=== PATIENT | female | born 1985 | race Caucasian/White ===

== ENCOUNTER 2017-09-07 13:40 | Emergency (ER) | payer OTHER ==
[2017-09-07 13:52] VITALS: RESP 16
--- NOTE | 2017-09-07 14:04 | CPEKG ---
Heart Rate: 87 RR Interval: 690 P-R Interval: 152 QRSD Interval: 74 QT Interval: 372 QTC Interval: 448 P Ste[place]: 25 QRS Steuben: 42 T Wave Ste[place]: 31 EKG Severity - BORDERLINE ECG - EKG Impression: SINUS RHYTHM EKG Impression: BORDERLINE T ABNORMALITIES, ANTERIOR LEADS Electronically Signed By: Asher Gallegos 08-Sep-2017 00:13:34
[2017-09-07 14:55] VITALS: O2SAT 96
--- NOTE | 2017-09-07 15:21 | EDPHY ---
H & P Stated Complaint: Palpitations Time Seen by Provider: 09/07/17 15:21 HPI/ROS: CHIEF COMPLAINT: Palpitations HISTORY OF PRESENT ILLNESS: The patient presents to the ED after she experienced an episode of palpitations earlier today. The patient describes a sensation of an irregular heartbeat. The patient reports her heart rate was approximately 80-130. The patient's symptoms have subsequently resolved. The patient denies prior history of arrhythmia. The patient denies any antecedent chest pain or shortness of breath. She denies asymmetric calf pain or swelling. The patient denies any history hypertension or hyperlipidemia. The patient does have a history of migraine headaches. REVIEW OF SYSTEMS: A comprehensive 10 point review of systems is otherwise negative aside from elements mentioned in the history of present illness. 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 PSH: right elbow replacement, 2 c-sections, myriam - Social History Smoking Status: Never smoked - Physical Exam Exam: General Appearance: Alert, no distress Eyes: Pupils equal and round no pallor or injection ENT, Mouth: Mucous membranes moist Respiratory: There are no retractions, lungs are clear to auscultation Cardiovascular: Regular rate and rhythm Gastrointestinal: Abdomen is soft and nontender, no masses, bowel sounds normal Neurological: A&O, normal motor function, normal sensory exam, normal cranial nerves Skin: Warm and dry, no rashes Musculoskeletal: Neck is supple nontender Extremities: symmetrical, full range of motion Constitutional: Initial Vital Signs Temperature (C) 37.5 C 09/07/17 13:49 Heart Rate 90 09/07/17 13:49 Respiratory Rate 16 09/07/17 13:49 Blood Pressure 139/90 H 09/07/17 13:49 O2 Sat (%) 97 09/07/17 13:49 O2 Delivery Mode Room Air Allergies/Adverse Reactions: sea food Allergy (Uncoded 09/07/17 13:47) Home Medications: Medication Instructions Recorded Bcp 09/07/17 Gabapentin 09/07/17 Lexapro 09/07/17 Pantoprazole Sodium 09/07/17 Rizatriptan 09/07/17 Medical Decision Making - Diagnostics EKG Interpretation: EKG: Complete interpretation has been separately recorded in the [email or web address] archive. Summary impression: Sinus rhythm, nonspecific ST T wave changes noted. ED Course/Re-evaluation: The patient presents the emergency department after an episode of resolved palpitations. The patient was placed on a cardiac tech in the emergency department without any arrhythmia noted. The patient's EKG demonstrates no acute changes. The patient has no complaints of chest pain or shortness of breath. There is nothing to suggest PE based upon her history and physical exam. The patient's electrolytes demonstrate no acute abnormalities. This point time I do feel the patient can follow up with Cardiology for consideration of a Holter monitor. She is advised to return to the ED for any recurrent palpitations, chest pain, difficulty breathing or other concerns. Differential Diagnosis: Differential diagnosis considered includes SVT, atrial fibrillation, sinus tachycardia, dehydration - Data Points Laboratory Results: Laboratory Results 09/07/17 14:53 09/07/17 14:53 09/07/17 09/07/17 14:53 14:53 WBC 8.78 10^3/uL 10^3/uL (3.80-9.50) RBC 4.71 10^6/uL 10^6/uL (4.18-5.33) Hgb 14.8 g/dL g/dL (12.6-16.3) Hct 43.4 % % (38.0-47.0) MCV 92.1 fL fL (81.5-99.8) MCH 31.4 pg pg (27.9-34.1) MCHC 34.1 g/dL g/dL (32.4-36.7) RDW 11.8 % % (11.5-15.2) Plt Count 279 10^3/uL 10^3/uL (150-400) MPV 9.6 fL fL (8.7-11.7) Neut % (Auto) 59.6 % % (39.3-74.2) Lymph % (Auto) 29.3 % % (15.0-45.0) [place] % (Auto) 5.9 % % (4.5-13.0) Eos % (Auto) 4.2 % % (0.6-7.6) Baso % (Auto) 0.8 % % (0.3-1.7) Nucleat RBC Rel Count 0.0 % % (0.0-0.2) Absolute Neuts (auto) 5.23 10^3/uL 10^3/uL (1.70-6.50) Absolute Lymphs (auto) 2.57 10^3/uL 10^3/uL (1.00-3.00) Absolute Monos (auto) 0.52 10^3/uL 10^3/uL (0.30-0.80) Absolute Eos (auto) 0.37 10^3/uL 10^3/uL (0.03-0.40) Absolute Basos (auto) 0.07 10^3/uL 10^3/uL (0.02-0.10) Absolute Nucleated RBC 0.00 10^3/uL 10^3/uL (0-0.01) Immature Gran % 0.2 % % (0.0-1.1) Immature Gran # 0.02 10^3/uL 10^3/uL (0.00-0.10) Sodium 142 mEq/L mEq/L (135-145) Potassium 4.1 mEq/L mEq/L (3.5-5.2) Chloride 103 mEq/L mEq/L (97-110) Carbon Dioxide 26 mEq/l mEq/l (22-31) Anion Gap 13 mEq/L mEq/L (8-16) BUN 11 mg/dL mg/dL (7-23) Creatinine 1.0 mg/dL mg/dL (0.6-1.0) Estimated GFR > 60 Glucose 88 mg/dL mg/dL (70-100) Calcium 10.0 mg/dL mg/dL (8.5-10.4) TSH 1.180 uIU/mL uIU/mL (0.465-4.680) Departure - Departure Disposition: Home, Routine, Self-Care Clinical Impression: Palpitations Condition: Good Instructions: Heart Palpitations (ED) Additional Instructions: 1. Please return to the emergency department for any recurrent palpitations, difficulty breathing or other concerns. 2. Please follow up with our belt machine operator for consideration of a Holter monitor. Referrals: Trung Bauer MD [Medical Doctor] - As per Instructions
[2017-09-07 15:32] LABS: PLATELET COUNT 279 10^3/uL (150-400)
[2017-09-07 16:21] VITALS: BP 103/83; PULSE 83; TEMP 98.1
== END 2017-09-07 16:21 | disposition home or self-care (01) ==
DX: R00.2 Palpitations (principal)